=== PATIENT | female | born 1945 | race Two or more races ===

== ENCOUNTER 2020-02-25 21:49 | Inpatient (IN) | payer OTHER ==
[~2020-02-25] VITALS: Ht 142.2 cm; Wt 72.9 kg
[2020-02-25 23:56] LABS: Basophils # (auto) 0 10 ^3/uL (0-0.2); Basophils % (auto) 0.3 % (0.0-2.0); Eosinophils # (auto) 0 10 ^3/uL (0-0.8); Eosinophils % (auto) 0.2 % (0.0-7.0); Hematocrit 38.9 % (36.0-46.0); Hemoglobin 13.9 g/dL (12.2-16.2); Lymphocytes # (auto) 0.7 10 ^3/uL (0.4-5.4); Lymphocytes % (auto) 18.9 % (10.0-50.0); Mean Corpuscular Hemoglobin 32.8 pg (28.0-32.0); Mean Corpuscular Hgb Conc. 35.7 g/dL (32.0-36.0); Mean Corpuscular Volume 92.1 fL (80.0-100.0); Monocytes # (auto) 0.4 10 ^3/uL (0-1.3); Monocytes % (auto) 10.4 % (0.0-12.0); Neutrophils # (auto) 2.8 10 ^3/uL (1.6-8.6); Neutrophils % (auto) 70.2 % (37.0-80.0); Nucleated Red Blood Cells % 0.1 %; Platelet Count (auto) 150 10^3/uL (140-450); Red Blood Cells 4.22 10^6/uL (4.0-5.20); Red Cell Distribution Width 12.7 % (11.8-14.3); White Blood Cell 3.9 10^3/uL (4.4-10.8)
[2020-02-26 00:12] LABS: Albumin 3.3 g/dL (3.4-5.0); Potassium 4.2 mmol/L (3.5-5.1)
[2020-02-26 00:17] LABS: BUN/Creatinine Ratio 11.3; Bilirubin, Total 0.3 mg/dL (0.2-1.0); Total Protein 7.5 g/dL (6.4-8.2)
[2020-02-26] MEDS ORDERED: AZITHROMYCIN 500MG/ 250ML 250 ML IV ONE (01:45)
[2020-02-26] MEDS ORDERED: methylPREDNISolone SOD SUCC 125 MG/2 ML VL IV ONE (01:45)
[2020-02-26] MEDS ORDERED: ACETAMINOPHEN 500 MG TAB PO PRN (04:00)
[2020-02-26] MEDS ORDERED: MORPHINE SULF INJ 2 MG/ML SYRINGE 1ML IV PRN (04:00)
[2020-02-26] MEDS ORDERED: DOCUSATE SOD 100 MG CAP PO PRN (04:00)
[2020-02-26] MEDS ORDERED: ALBUTEROL SULF HFA 90MCG INH 200DOSE IN PRN (04:00)
[2020-02-26] MEDS ORDERED: NITROGLYCERIN 0.4 MG SL TAB SL PRN (04:00)
[2020-02-26] MEDS: SODIUM CHLOR 0.9% PF (SALINE LOCK) 10ML VIAL/SYR IV SCH ×3 (06:00→23:41)
[2020-02-26 11:14] LABS: Basophils # (auto) 0 10 ^3/uL (0-0.2); Basophils % (auto) 0.1 % (0.0-2.0); Eosinophils # (auto) 0 10 ^3/uL (0-0.8); Hematocrit 38.2 % (36.0-46.0); Hemoglobin 13.9 g/dL (12.2-16.2); Lymphocytes # (auto) 0.3 10 ^3/uL (0.4-5.4); Lymphocytes % (auto) 10.5 % (10.0-50.0); Mean Corpuscular Hemoglobin 33.3 pg (28.0-32.0); Mean Corpuscular Hgb Conc. 36.5 g/dL (32.0-36.0); Mean Corpuscular Volume 91.4 fL (80.0-100.0); Monocytes # (auto) 0.1 10 ^3/uL (0-1.3); Neutrophils # (auto) 2.9 10 ^3/uL (1.6-8.6); Neutrophils % (auto) 87.4 % (37.0-80.0); Platelet Count (auto) 167 10^3/uL (140-450); Red Blood Cells 4.18 10^6/uL (4.0-5.20); Red Cell Distribution Width 12.8 % (11.8-14.3); White Blood Cell 3.3 10^3/uL (4.4-10.8)
[2020-02-26] MEDS: DexAMETHasone SOD PHOS 10MG/1ML VIAL INJ IV SCH (11:22)
[2020-02-26] MEDS: ENOXAPARIN SOD 40 MG/0.4 ML SYRINGE SC SCH (11:23)
[2020-02-26] MEDS: DOXYCYCLINE 100MG/250ML 250 ML IV SCH ×2 (11:23→23:41)
[2020-02-26] MEDS: ZINC SULFATE 220mg CAP or TAB PO SCH (11:23)
[2020-02-26] MEDS: MULTIPLE VITAMIN TAB PO SCH (11:23)
[2020-02-26] MEDS: PANTOPRAZOLE 40 MG/10 ML VIAL INJ IV SCH (11:23)
[2020-02-26] MEDS: ASCORBIC ACID 1,000 MG TAB PO SCH (11:23)
[2020-02-26] MEDS: CHOLECALCIFEROL (VITD3) 2,000 UNIT CAP PO SCH (11:23)
[2020-02-26 11:40] LABS: Potassium 4.5 mmol/L (3.5-5.1)
[2020-02-26 11:47] LABS: Albumin 3.2 g/dL (3.4-5.0); BUN/Creatinine Ratio 16.7; Bilirubin, Total 0.4 mg/dL (0.2-1.0); Calcium 8.8 mg/dL (8.5-10.1); Magnesium 2.1 mg/dL (1.6-2.6); Total Protein 7.9 g/dL (6.4-8.2)
[2020-02-26] MEDS: BUDESONIDE (INHALATION) 180 MCG IH IN SCH ×2 (13:27→23:40)
[2020-02-26] MEDS ORDERED: REMDESIVIR PER PHARMACY 0 ML IV SCH (16:00)
[2020-02-26] MEDS ORDERED: LOSA-69 PO (16:35)
[2020-02-26] MEDS: SODIUM CHLORIDE 0.9% 1,000 ML IV SCH (16:44)
[2020-02-26] MEDS ORDERED: IOHEXOL 350 MG/ML 100ML IJ ONE (16:47)
[2020-02-26] MEDS ORDERED: REMDESIVIR 200 MG in NS 210ml LOADING DOSE ADULT IV ONE (18:00)
[2020-02-26] MEDS: HYDROcodone-ACET 5/325MG TAB PO PRN (19:11)
[2020-02-27] MEDS: SODIUM CHLORIDE 0.9% 1,000 ML IV SCH (02:00)
[2020-02-27] MEDS: HYDROcodone-ACET 5/325MG TAB PO PRN (03:03)
[2020-02-27] MEDS: ONDANSETRON HCL 4 MG/2 ML VIAL IV PRN (03:04)
[2020-02-27] MEDS: SODIUM CHLOR 0.9% PF (SALINE LOCK) 10ML VIAL/SYR IV SCH ×3 (06:09→22:03)
[2020-02-27 06:41] LABS: Basophils # (auto) 0 10 ^3/uL (0-0.2); Eosinophils # (auto) 0 10 ^3/uL (0-0.8); Hematocrit 35.9 % (36.0-46.0); Lymphocytes # (auto) 0.7 10 ^3/uL (0.4-5.4); Lymphocytes % (auto) 13.9 % (10.0-50.0); Mean Corpuscular Hemoglobin 32.8 pg (28.0-32.0); Mean Corpuscular Hgb Conc. 36.1 g/dL (32.0-36.0); Mean Corpuscular Volume 90.6 fL (80.0-100.0); Monocytes # (auto) 0.8 10 ^3/uL (0-1.3); Monocytes % (auto) 14.2 % (0.0-12.0); Neutrophils # (auto) 3.8 10 ^3/uL (1.6-8.6); Neutrophils % (auto) 71.9 % (37.0-80.0); Platelet Count (auto) 188 10^3/uL (140-450); Red Blood Cells 3.96 10^6/uL (4.0-5.20); Red Cell Distribution Width 12.6 % (11.8-14.3); White Blood Cell 5.3 10^3/uL (4.4-10.8)
[2020-02-27 07:04] LABS: Albumin 2.9 g/dL (3.4-5.0); BUN/Creatinine Ratio 21.3; Potassium 4.4 mmol/L (3.5-5.1)
[2020-02-27 07:13] LABS: Bilirubin, Total 0.2 mg/dL (0.2-1.0); Total Protein 6.8 g/dL (6.4-8.2)
[2020-02-27] MEDS: PANTOPRAZOLE 40 MG/10 ML VIAL INJ IV SCH (11:06)
[2020-02-27] MEDS: DexAMETHasone SOD PHOS 10MG/1ML VIAL INJ IV SCH (11:06)
[2020-02-27] MEDS: ZINC SULFATE 220mg CAP or TAB PO SCH (11:07)
[2020-02-27] MEDS: CHOLECALCIFEROL (VITD3) 2,000 UNIT CAP PO SCH (11:07)
[2020-02-27] MEDS: DOXYCYCLINE 100MG/250ML 250 ML IV SCH ×2 (11:07→22:03)
[2020-02-27] MEDS: ASCORBIC ACID 1,000 MG TAB PO SCH (11:07)
[2020-02-27] MEDS: ENOXAPARIN SOD 40 MG/0.4 ML SYRINGE SC SCH (11:07)
[2020-02-27] MEDS: BUDESONIDE (INHALATION) 180 MCG IH IN SCH ×2 (12:09→22:03)
[2020-02-27] MEDS: MULTIPLE VITAMIN TAB PO SCH (12:09)
[2020-02-27] MEDS ORDERED: amLODIPine BESYLATE 5 MG TAB PO ONE (15:45)
[2020-02-27] MEDS ORDERED: ALBUTEROL SULF HFA 90MCG INH 200DOSE IN SCH (15:45)
[2020-02-27] MEDS: REMDESIVIR 100 MG in SODIUM CHL 0.9% 250 ML IV SCH (17:32)
[2020-02-27] MEDS: ALBUTEROL SULF HFA 90MCG INH 200DOSE IN SCH (19:00)
[2020-02-28] VITALS: BP 144/86
[2020-02-28] MEDS: HYDROcodone-ACET 5/325MG TAB PO PRN (01:35)
[2020-02-28] MEDS: ALBUTEROL SULF HFA 90MCG INH 200DOSE IN SCH ×3 (06:00→20:30)
[2020-02-28] MEDS: SODIUM CHLOR 0.9% PF (SALINE LOCK) 10ML VIAL/SYR IV SCH ×3 (06:17→21:30)
[2020-02-28 06:28] LABS: Basophils # (auto) 0 10 ^3/uL (0-0.2); Basophils % (auto) 0.1 % (0.0-2.0); Eosinophils # (auto) 0 10 ^3/uL (0-0.8); Hematocrit 36.8 % (36.0-46.0); Hemoglobin 13.1 g/dL (12.2-16.2); Lymphocytes # (auto) 0.8 10 ^3/uL (0.4-5.4); Lymphocytes % (auto) 10.4 % (10.0-50.0); Mean Corpuscular Hemoglobin 32.6 pg (28.0-32.0); Mean Corpuscular Hgb Conc. 35.5 g/dL (32.0-36.0); Mean Corpuscular Volume 91.9 fL (80.0-100.0); Monocytes # (auto) 0.9 10 ^3/uL (0-1.3); Monocytes % (auto) 12.3 % (0.0-12.0); Neutrophils # (auto) 5.9 10 ^3/uL (1.6-8.6); Neutrophils % (auto) 77.2 % (37.0-80.0); Nucleated Red Blood Cells % 0.1 %; Platelet Count (auto) 251 10^3/uL (140-450); Red Blood Cells 4.01 10^6/uL (4.0-5.20); Red Cell Distribution Width 12.8 % (11.8-14.3); White Blood Cell 7.6 10^3/uL (4.4-10.8)
[2020-02-28 06:50] LABS: Albumin 2.8 g/dL (3.4-5.0); Calcium 7.9 mg/dL (8.5-10.1); Potassium 4.1 mmol/L (3.5-5.1)
[2020-02-28 06:54] LABS: BUN/Creatinine Ratio 32.8; Bilirubin, Total 0.3 mg/dL (0.2-1.0); Total Protein 6.6 g/dL (6.4-8.2)
[2020-02-28] MEDS: BUDESONIDE (INHALATION) 180 MCG IH IN SCH ×2 (07:41→20:30)
[2020-02-28 08:00] VITALS: BP 116/53
[2020-02-28] MEDS: DexAMETHasone SOD PHOS 10MG/1ML VIAL INJ IV SCH (10:21)
[2020-02-28] MEDS: PANTOPRAZOLE 40 MG/10 ML VIAL INJ IV SCH (10:21)
[2020-02-28] MEDS: amLODIPine BESYLATE 5 MG TAB PO SCH (10:22)
[2020-02-28] MEDS: ZINC SULFATE 220mg CAP or TAB PO SCH (10:22)
[2020-02-28] MEDS: ENOXAPARIN SOD 40 MG/0.4 ML SYRINGE SC SCH (10:23)
[2020-02-28] MEDS: MULTIPLE VITAMIN TAB PO SCH (10:24)
[2020-02-28] MEDS: DOXYCYCLINE 100MG/250ML 250 ML IV SCH ×2 (10:24→21:26)
[2020-02-28] MEDS: CHOLECALCIFEROL (VITD3) 2,000 UNIT CAP PO SCH (10:25)
[2020-02-28] MEDS: ASCORBIC ACID 1,000 MG TAB PO SCH (10:25)
[2020-02-28] MEDS ORDERED: AMLO5TAB15 PO (16:04)
[2020-02-28] MEDS ORDERED: AZIT250T9 PO (16:04)
[2020-02-28] MEDS ORDERED: FLUT100I IN (16:08)
[2020-02-28 16:30] VITALS: BP 116/63
[2020-02-28] MEDS: REMDESIVIR 100 MG in SODIUM CHL 0.9% 250 ML IV SCH (19:18)
[2020-02-28] MEDS: ALBUTEROL SULF HFA 90MCG INH 200DOSE IN PRN (20:30)
[2020-02-29] VITALS: BP 111/55
[2020-02-29] MEDS: SODIUM CHLOR 0.9% PF (SALINE LOCK) 10ML VIAL/SYR IV SCH ×3 (05:48→21:26)
[2020-02-29 06:58] LABS: Basophils # (auto) 0 10 ^3/uL (0-0.2); Basophils % (auto) 0.1 % (0.0-2.0); Eosinophils # (auto) 0 10 ^3/uL (0-0.8); Hematocrit 35.5 % (36.0-46.0); Hemoglobin 12.8 g/dL (12.2-16.2); Lymphocytes # (auto) 0.9 10 ^3/uL (0.4-5.4); Lymphocytes % (auto) 14.7 % (10.0-50.0); Mean Corpuscular Hemoglobin 32.7 pg (28.0-32.0); Mean Corpuscular Hgb Conc. 36.1 g/dL (32.0-36.0); Mean Corpuscular Volume 90.4 fL (80.0-100.0); Monocytes % (auto) 15.8 % (0.0-12.0); Neutrophils # (auto) 4.2 10 ^3/uL (1.6-8.6); Neutrophils % (auto) 69.4 % (37.0-80.0); Nucleated Red Blood Cells % 0.1 %; Platelet Count (auto) 260 10^3/uL (140-450); Red Blood Cells 3.92 10^6/uL (4.0-5.20); Red Cell Distribution Width 12.4 % (11.8-14.3)
[2020-02-29] MEDS: BUDESONIDE (INHALATION) 180 MCG IH IN SCH ×2 (07:43→19:30)
[2020-02-29] MEDS: ALBUTEROL SULF HFA 90MCG INH 200DOSE IN PRN ×2 (07:43→19:31)
[2020-02-29 08:00] VITALS: BP 145/78
[2020-02-29 08:55] LABS: Potassium 4.2 mmol/L (3.5-5.1)
[2020-02-29 09:31] LABS: Albumin 2.8 g/dL (3.4-5.0); BUN/Creatinine Ratio 37.3; Bilirubin, Total 0.4 mg/dL (0.2-1.0); Calcium 7.9 mg/dL (8.5-10.1); Total Protein 6.3 g/dL (6.4-8.2)
[2020-02-29] MEDS: ENOXAPARIN SOD 40 MG/0.4 ML SYRINGE SC SCH (10:44)
[2020-02-29] MEDS: amLODIPine BESYLATE 5 MG TAB PO SCH (10:44)
[2020-02-29] MEDS: ZINC SULFATE 220mg CAP or TAB PO SCH (10:44)
[2020-02-29] MEDS: PANTOPRAZOLE 40 MG/10 ML VIAL INJ IV SCH (10:45)
[2020-02-29] MEDS: ASCORBIC ACID 1,000 MG TAB PO SCH (10:45)
[2020-02-29] MEDS: DexAMETHasone SOD PHOS 10MG/1ML VIAL INJ IV SCH (10:45)
[2020-02-29] MEDS: MULTIPLE VITAMIN TAB PO SCH (10:45)
[2020-02-29] MEDS: DOXYCYCLINE 100MG/250ML 250 ML IV SCH ×2 (10:46→21:27)
[2020-02-29] MEDS: CHOLECALCIFEROL (VITD3) 2,000 UNIT CAP PO SCH (10:47)
[2020-02-29] MEDS: ONDANSETRON HCL 4 MG/2 ML VIAL IV PRN (11:59)
[2020-02-29] MEDS: REMDESIVIR 100 MG in SODIUM CHL 0.9% 250 ML IV SCH (15:45)
[2020-02-29 16:00] VITALS: BP 142/74
[2020-02-29] MEDS: HYDROcodone-ACET 5/325MG TAB PO PRN (21:27)
[2020-03-01] VITALS: BP 142/75
[2020-03-01] MEDS: SODIUM CHLOR 0.9% PF (SALINE LOCK) 10ML VIAL/SYR IV SCH ×2 (06:11→14:00)
[2020-03-01 08:00] VITALS: BP 134/69
[2020-03-01 08:08] LABS: Basophils # (auto) 0 10 ^3/uL (0-0.2); Eosinophils # (auto) 0 10 ^3/uL (0-0.8); Eosinophils % (auto) 0.3 % (0.0-7.0); Hematocrit 38.4 % (36.0-46.0); Hemoglobin 13.4 g/dL (12.2-16.2); Lymphocytes # (auto) 1.3 10 ^3/uL (0.4-5.4); Lymphocytes % (auto) 16.5 % (10.0-50.0); Mean Corpuscular Hemoglobin 31.8 pg (28.0-32.0); Mean Corpuscular Volume 90.9 fL (80.0-100.0); Monocytes # (auto) 0.9 10 ^3/uL (0-1.3); Monocytes % (auto) 11.8 % (0.0-12.0); Neutrophils # (auto) 5.6 10 ^3/uL (1.6-8.6); Neutrophils % (auto) 71.4 % (37.0-80.0); Nucleated Red Blood Cells % 0.1 %; Platelet Count (auto) 286 10^3/uL (140-450); Red Blood Cells 4.22 10^6/uL (4.0-5.20); Red Cell Distribution Width 12.8 % (11.8-14.3); White Blood Cell 7.8 10^3/uL (4.4-10.8)
[2020-03-01 08:27] LABS: Potassium 3.7 mmol/L (3.5-5.1)
[2020-03-01 09:06] LABS: Albumin 2.7 g/dL (3.4-5.0); BUN/Creatinine Ratio 33.3; Bilirubin, Total 0.6 mg/dL (0.2-1.0); Calcium 7.7 mg/dL (8.5-10.1); Total Protein 6.4 g/dL (6.4-8.2)
[2020-03-01] MEDS: ALBUTEROL SULF HFA 90MCG INH 200DOSE IN PRN (09:29)
[2020-03-01] MEDS: BUDESONIDE (INHALATION) 180 MCG IH IN SCH (09:29)
[2020-03-01] MEDS: DOXYCYCLINE 100MG/250ML 250 ML IV SCH (10:00)
[2020-03-01] MEDS: PANTOPRAZOLE 40 MG/10 ML VIAL INJ IV SCH (11:34)
[2020-03-01] MEDS: DexAMETHasone SOD PHOS 10MG/1ML VIAL INJ IV SCH (11:34)
[2020-03-01] MEDS: ENOXAPARIN SOD 40 MG/0.4 ML SYRINGE SC SCH (11:35)
[2020-03-01] MEDS: ASCORBIC ACID 1,000 MG TAB PO SCH (11:35)
[2020-03-01] MEDS: ZINC SULFATE 220mg CAP or TAB PO SCH (11:35)
[2020-03-01] MEDS: amLODIPine BESYLATE 5 MG TAB PO SCH (11:35)
[2020-03-01] MEDS: MULTIPLE VITAMIN TAB PO SCH (11:36)
[2020-03-01] MEDS: CHOLECALCIFEROL (VITD3) 2,000 UNIT CAP PO SCH (11:36)
[2020-03-01] MEDS: REMDESIVIR 100 MG in SODIUM CHL 0.9% 250 ML IV SCH (11:37)
[2020-03-01 16:00] VITALS: BP 162/83
[2020-03-01] MEDS ORDERED: ASCO10003 PO (17:25)
[2020-03-01] MEDS ORDERED: ALBUAER3 IN (17:25)
[2020-03-01] MEDS ORDERED: CHOL1CAP47 PO (17:25)
[2020-03-01] MEDS ORDERED: DEXA6TAB6 PO (17:25)
[2020-03-01] MEDS ORDERED: DOXY-332 PO (17:25)
[2020-03-01] MEDS ORDERED: ZINC220T6 PO (17:25)
[2020-03-01 18:07] VITALS: BP 162/83
== END 2020-03-01 19:50 | disposition home health service (06) | DRG 177 ==
LOC: ER 21:49 → TELE 02-26 03:59 → TELE-EAST 02-27 23:34
PROVIDERS: ADMIT Nurse Practitioner Family; ATTEND Internal Medicine
PROC: XW033E5 Introduction of Remdesivir Anti-infective into Peripheral Vein, Percutaneous Approach, New Technology Group 5 (ICD-10-PCS; principal; 2020-02-26)
DX: U07.1 COVID-19 (principal); J12.89 Other viral pneumonia; J96.01 Acute respiratory failure with hypoxia; E87.1 Hypo-osmolality and hyponatremia; E66.01 Morbid (severe) obesity due to excess calories; Z68.36 Body mass index [BMI] 36.0-36.9, adult; I10 Essential (primary) hypertension
CPT/HCPCS: 36415; 36600; 71045; 71275; 80053; 82728; 82805; 82962; 83036; 83615; 83735; 84443; 85025; 85379; 87426; 93970; 94640; 96365; 96375; C9113; G0378; J1100; J2405; J3490

== ENCOUNTER 2022-12-13 17:32 | Emergency (ER) | payer OTHER ==
[~2022-12-13] VITALS: Ht 154.9 cm; Wt 73.8 kg
[~2022-12-13 17:32] MED LIST: ALBUAER3 IN; AMLO1TAB22 PO; ASCO10003 PO; CHOL1CAP47 PO; DEXA6TAB6 PO; DOXY-448 PO; FLUT100I IN; LOSA50TA46 PO; ZINC220T6 PO
[2022-12-13 18:57] LABS: Basophils # (auto) 0.1 10 ^3/uL (0-0.2); Basophils % (auto) 0.8 % (0.0-2.0); Eosinophils # (auto) 0.1 10 ^3/uL (0-0.8); Eosinophils % (auto) 0.6 % (0.0-7.0); Hemoglobin 14.1 g/dL (12.2-16.2); Lymphocytes % (auto) 26.9 % (10.0-50.0); Mean Corpuscular Hemoglobin 31.7 pg (28.0-32.0); Mean Corpuscular Hgb Conc. 33.6 g/dL (32.0-36.0); Mean Corpuscular Volume 94.3 fL (80.0-100.0); Monocytes # (auto) 0.8 10 ^3/uL (0-1.3); Neutrophils # (auto) 7.3 10 ^3/uL (1.6-8.6); Neutrophils % (auto) 64.7 % (37.0-80.0); Nucleated Red Blood Cells % 0.1 %; Red Blood Cells 4.45 10^6/uL (4.0-5.20); Red Cell Distribution Width 13.6 % (11.8-14.3); White Blood Cell 11.3 10^3/uL (4.4-10.8)
[2022-12-13] MEDS ORDERED: ASPirin-EC 325mg tab PO ONE (19:15)
[2022-12-13 19:17] LABS: INR 0.98 (0.9-1.15); Partial Thromboplastin Time 22.8 SEC (24.5-34.5); Prothrombin Time 10.3 sec (9.3-11.8)
[2022-12-13 19:27] LABS: Alanine Aminotransferase 15 U/L (7-40); Albumin 4.6 g/dL (3.2-4.8); Alkaline Phosphatase 69 U/L (46-116); Anion Gap 8 (5-15); Aspartate Aminotransferase 22 U/L (13-40); BUN/Creatinine Ratio 25.6 (10.0-20.0); Bilirubin, Total 0.5 mg/dL (0.2-1.0); Blood Urea Nitrogen 22 mg/dL (9-23); Calcium 9.2 mg/dL (8.7-10.4); Carbon Dioxide 25 mmol/L (20-30); Chloride 104 mmol/L (98-107); Glucose 130 mg/dL (74-106); Magnesium 2.2 mg/dL (1.6-2.6); Potassium 4.4 mmol/L (3.5-5.1); Sodium 137 mmol/L (136-145); Total Protein 7.4 g/dL (5.7-8.2)
[2022-12-13 19:39] LABS: INR 0.98 (0.9-1.15); Prothrombin Time 10.3 sec (9.3-11.8)
[2022-12-13] MEDS ORDERED: LOSARTAN POTASSIUM 50 MG TAB PO ONE (22:00)
[2022-12-14 01:25] VITALS: PULSE 79; RESP 17; O2SAT 98
[2022-12-14 02:13] VITALS: BP 145/70; PULSE 76; RESP 18; TEMP 98.7; O2SAT 98
== END 2022-12-14 02:28 | disposition short-term general hospital (02) ==
LOC: ER 17:32
DX: I10 Essential (primary) hypertension (principal); R20.2 Paresthesia of skin; R94.31 Abnormal electrocardiogram [ECG] [EKG]; R07.89 Other chest pain
CPT/HCPCS: 36415; 70450; 71045; 80053; 83735; 83880; 84484; 85025; 85610; 85730; 93005